=== PATIENT | female | born 1985 | race Caucasian/White ===

== ENCOUNTER 2021-04-12 18:48 | Emergency (ER) | payer OTHER ==
[~2021-04-12] VITALS: Ht 162.5 cm; Wt 65.0 kg
[2021-04-12] MEDS ORDERED: cloNIDine 0.2 MG (CATAPRES) TAB PO ONE (19:15)
--- NOTE | 2021-04-12 19:17 | ED Cardiac General ---
History of Present Illness General Chief Complaint: Cardiac/General Problems Stated Complaint: ELEV BP 230/142 Nursing Triage Note: Pt ambultory into ER with complaint of HTN after going to see Eye doctor today. They checked her BP and found it to be 220's/140's. Pt left there and went to walk in clinic where she was still hypertensive. They immediately told her to go to the ER. Pt is 192/120 here in ER. Pt denies being on medication for HTN. No other complaint. Source: patient Exam Limitations: no limitations History of Present Illness Date Seen by Provider: Apr 12, 2021 Time Seen by Provider: 19:14 Initial Comments To ER with high blood pressure. She went to the eye doctor today and was found to be hypertensive at 220s over 140s there. She was then seen at the [facility] walk-in clinic where she was found to be persistently hypertensive and referred to ER. No CP or SOA, no symptoms at all. Not on antihypertensives. Hx HTN in . Timing/Duration: changing over time Severity: moderate Activities at Onset: none NTG SL ENTRY REP: No ASA po ENTRY REP: No Associated Systoms: Denies Symptoms Allergies and Home Medications Allergies Coded Allergies: No Known Drug Allergies (Unverified , 04/12/21) Patient Home Medication List Home Medication List Reviewed: Yes Review of Systems Review of Systems Constitutional: see HPI EENTM: No Symptoms Reported Respiratory: No Symptoms Reported Cardiovascular: No Symptoms Reported Gastrointestinal: See HPI Genitourinary: No Symptoms Reported Musculoskeletal: no symptoms reported Skin: no symptoms reported Psychiatric/Neurological: No Symptoms Reported Endocrine: No Symptoms Reported Hematologic/Lymphatic: No Symptoms Reported Past Gaskxhv-Waovja-Gwvvkn Hx Patient Social History Tobacco Use?: No Use of E-Cig and/or Vaping dev: No Substance use?: No Alcohol Use?: No Immunizations Up To Date Influenza Vaccine Up-to-Date: No; Not Current Physical Exam Vital Signs Vital Signs - First Documented 04/12/21 19:04 Temp 36.3 Pulse 92 Resp 18 B/P (MAP) 192/120 (144) Pulse Ox 99 O2 Delivery Room Air Capillary Refill : Less Than 3 Seconds Height, Weight, BMI Height: '" Weight: lbs. oz. kg; 24.00 BMI Method: General Appearance: No Apparent Distress, WD/WN HEENT: PERRL/EOMI, TMs Normal Neck: Full Range of Motion, Normal Inspection Respiratory: No Accessory Muscle Use, No Respiratory Distress Cardiovascular: Regular Rate, Rhythm, Normal Peripheral Pulses Gastrointestinal: Normal Bowel Sounds, Non Tender, Soft Extremity: Normal Capillary Refill, Normal Inspection Neurologic/Psychiatric: Alert, Oriented x3 Skin: Normal Color, Warm/Dry Progress/Results/Core Measures Results/Orders Lab Results Laboratory Tests Test 04/12/21 19:20 Range/Units White Blood Count 9.5 4.3-11.0 10^3/uL Red Blood Count 4.95 3.80-5.11 10^6/uL Hemoglobin 14.7 11.5-16.0 g/dL Hematocrit 43 35-52 % Mean Corpuscular Volume 88 80-99 fL Mean Corpuscular Hemoglobin 30 25-34 pg Mean Corpuscular Hemoglobin Concent 34 32-36 g/dL Red Cell Distribution Width 12.4 10.0-14.5 % Platelet Count 322 130-400 10^3/uL Mean Platelet Volume 11.1 9.0-12.2 fL Immature Granulocyte % (Auto) 0 % Neutrophils (%) (Auto) 67 42-75 % Lymphocytes (%) (Auto) 25 12-44 % Monocytes (%) (Auto) 7 0-12 % Eosinophils (%) (Auto) 1 0-10 % Basophils (%) (Auto) 0 0-10 % Neutrophils # (Auto) 6.4 1.8-7.8 10^3/uL Lymphocytes # (Auto) 2.4 1.0-4.0 10^3/uL Monocytes # (Auto) 0.7 0.0-1.0 10^3/uL Eosinophils # (Auto) 0.1 0.0-0.3 10^3/uL Basophils # (Auto) 0.0 0.0-0.1 10^3/uL Immature Granulocyte # (Auto) 0.0 0.0-0.1 10^3/uL Sodium Level 141 135-145 MMOL/L Potassium Level 3.9 3.6-5.0 MMOL/L Chloride Level 109 H 98-107 MMOL/L Carbon Dioxide Level 23 21-32 MMOL/L Anion Gap 9 5-14 MMOL/L Blood Urea Nitrogen 10 7-18 MG/DL Creatinine 1.00 0.60-1.30 MG/DL Estimat Glomerular Filtration Rate 62 BUN/Creatinine Ratio 10 Glucose Level 90 70-105 MG/DL Calcium Level 9.9 8.5-10.1 MG/DL Serum Test, Qualitative NEGATIVE NEGATIVE My Orders Orders - EMILIA GALLEGOS APRN Cbc With Automated Diff (04/12/21 19:10) Basic Metabolic Panel (04/12/21 19:10) Hcg,Qualitative Serum (04/12/21 19:10) Clonidine Tablet (Catapres Tablet) (04/12/21 19:15) Medications Given in ED Current Medications Medications Dose Ordered Sig/Courtney Route Start Time Stop Time Status Last Admin Dose Admin Clonidine HCl 0.2 mg ONCE ONCE PO 04/12/21 19:15 04/12/21 19:16 DC 04/12/21 19:15 0.2 MG Vital Signs/I&O 04/12/21 19:04 Temp 36.3 Pulse 92 Resp 18 B/P (MAP) 192/120 (144) Pulse Ox 99 O2 Delivery Room Air Blood Pressure Mean: 144 Departure Impression Primary Impression: Hypertension Disposition: 01 HOME, SELF-CARE Condition: Stable Departure-Patient Inst. Decision time for Depature: 20:17 Referrals: [facility]ELE (PCP) Primary Care Physician DEWAYNE LY (Family) Primary Care Physician Patient Instructions: High Blood Pressure (DC) Add. Discharge Instructions: 1. Follow-up with [facility] to recheck blood pressure. In the meantime take the blood pressure medication as directed. All discharge instructions reviewed with patient and/or family. Voiced understanding. Scripts Hydrochlorothiazide (Hydrochlorothiazide) 25 Mg Tablet 25 MG PO DAILY, #14 TAB Prov: EMILIA GALLEGOS APRN 04/12/21 EMILIA GALLEGOS APRN Apr 12, 2021 19:17
[2021-04-12 19:28] LABS: BASOPHILS % (AUTO) 0 % (0-10); EOSINOPHILS # (AUTO) 0.1 10^3/uL (0.0-0.3); EOSINOPHILS % (AUTO) 1 % (0-10); HEMATOCRIT 43 % (35-52); HEMOGLOBIN 14.7 g/dL (11.5-16.0); LYMPHOCYTES # (AUTO) 2.4 10^3/uL (1.0-4.0); LYMPHOCYTES % (AUTO) 25 % (12-44); MEAN CORPUSCULAR HEMOGLOBIN 30 pg (25-34); MEAN CORPUSCULAR HGB CONC 34 g/dL (32-36); MEAN CORPUSCULAR VOLUME 88 fL (80-99); MEAN PLATELET VOLUME 11.1 fL (9.0-12.2); MONOCYTES # (AUTO) 0.7 10^3/uL (0.0-1.0); MONOCYTES % (AUTO) 7 % (0-12); NEUTROPHILS # (AUTO) 6.4 10^3/uL (1.8-7.8); NEUTROPHILS % (AUTO) 67 % (42-75); PLATELET COUNT 322 10^3/uL (130-400); WHITE BLOOD COUNT 9.5 10^3/uL (4.3-11.0)
[2021-04-12 20:01] LABS: CALCIUM 9.9 MG/DL (8.5-10.1); POTASSIUM 3.9 MMOL/L (3.6-5.0)
[2021-04-12] MEDS ORDERED: HYDR25TA4 PO (20:19)
[2021-04-12 22:44] VITALS: BP 131/95
== END 2021-04-12 20:24 | disposition home or self-care (01) ==
LOC: EDUNIT# 18:48 → ER 18:50
DX: I10 Essential (primary) hypertension (principal)
CPT/HCPCS: 36415; 80048; 84703; 85025; 99283